=== PATIENT | female | born 2000 | race African-American/Black ===

== ENCOUNTER 2025-06-21 08:30 | Emergency (ER) | payer MEDICAID, OTHER ==
[~2025-06-21] VITALS: Ht 175.3 cm; Wt 92.0 kg
[2025-06-21 08:39] VITALS: O2SAT 100
[2025-06-21] MEDS: IBUPROFEN 400MG TABLET PO ONE (10:14)
[2025-06-21] MEDS: ONDANSETRON 4MG ODT PO ONE (10:15)
[2025-06-21] MEDS: HYDROCODONE/ACETAMINOPHEN 5/325MG TABLET PO ONE (10:15)
[2025-06-21] MEDS ORDERED: IBUP-2028 MT (10:37)
[2025-06-21] MEDS ORDERED: TOPUD PO (10:37)
[2025-06-21 11:20] VITALS: BP 110/66; PULSE 80; RESP 18; TEMP 37.1; O2SAT 100
== END 2025-06-21 11:21 | disposition home or self-care (01) ==
LOC: ER 08:30
DX: S93.402A Sprain of unspecified ligament of left ankle, initial encounter (principal); S83.92XA Sprain of unspecified site of left knee, initial encounter; V00.121A Fall from non-in-line roller-skates, initial encounter; Y93.51 Activity, roller skating (inline) and skateboarding; Y92.89 Other specified places as the place of occurrence of the external cause; Y99.8 Other external cause status
CPT/HCPCS: 99284; 29505; 73562; 73610; Q0162; A6449